=== PATIENT | female | born 1975 | race American Indian/Alaskan Native ===

== ENCOUNTER 2019-11-23 09:40 | Outpatient (CLI) | payer OTHER ==
--- NOTE | 2019-11-23 15:45 | Mammography Report ---
DIGITAL SCREENING MAMMOGRAM WITH CAD, 11/23/2019 INDICATION: Routine screening mammography. TECHNIQUE: Digital bilateral 2D mammography was obtained in the craniocaudal and mediolateral obliq ue projections. This examination was interpreted with the benefit of Computer-Aided Detection analysi s. COMPARISON: 11/01/2013 FINDINGS: Breast Density: There are scattered areas of fibroglandular density. Left retroareolar asymmetries require additional imaging. No architectural distortion or suspicious c alcifications of the left breast. There is no evidence of dominant mass, suspicious calcifications or architectural distortion in the right breast. IMPRESSION: Left asymmetries requiring additional imaging. Recommend recall for left retroareolar spo t magnification views and left breast ultrasound. Follow up recommendation: Special View: Spot Category 0: Incomplete. Needs additional imaging evaluation and/or prior mammograms for comparison. A "normal" or negative report should not discourage follow up or biopsy of a clinically significant f inding. A written summary of these findings will be mailed to the patient. The patient will be entered into a mammography reporting system which will generate a reminder letter for the patient's next appointmen t at the appropriate interval. The [employer] recommends yearly mammograms starting at age 40 and continuing as l jaylen as a woman is in good health. Breast MRI is recommended for women with an approximate 20-25% or greater lifetime risk of breast cancer, including women with a strong family history of breast or ova treasure cancer or who have been treated for Hodgkin's disease. Signer Name: Zechariah Flores MD Signed: 11/23/2019 3:40 PM Workstation Name: [id number]
== END 2019-11-23 09:41 | disposition home or self-care (01) ==
LOC: SPVWC 09:40
PROVIDERS: ATTEND Hospitalist
DX: Z12.31 Encounter for screening mammogram for malignant neoplasm of breast (principal); N64.89 Other specified disorders of breast
CPT/HCPCS: 77067